=== PATIENT | male | born 2000 | race Hispanic/Latino ===

== ENCOUNTER 2024-07-24 12:14 | Emergency (ER) | payer BC ==
[~2024-07-24] VITALS: Ht 180.3 cm; Wt 78.2 kg
[~2024-07-24 12:14] MED LIST: ACETAMINOPHEN-1 EAC4 PO; CLINDAMYCIN HC150 MG PO; CLOTRIMAZOLE-BE15 GM TOP; IBUPROFEN600 MG PO; ONDANSETRON ODT4 MG PO
[2024-07-24 12:17] VITALS: PULSE 66; RESP 20; TEMP 98; O2SAT 97
== END 2024-07-24 12:55 | disposition home or self-care (01) ==
LOC: FSED 12:17
DX: S62.602D Fracture of unspecified phalanx of right middle finger, subsequent encounter for fracture with routine healing (principal); Y93.54 Activity, bowling; Y92.39 Other specified sports and athletic area as the place of occurrence of the external cause
CPT/HCPCS: 99284